=== PATIENT | female | born 1960 | race Caucasian/White ===

== ENCOUNTER 2016-08-10 11:17 | Day surgery (SDC) | payer OTHER ==
[~2016-08-10] VITALS: Ht 162.6 cm; Wt 84.4 kg
[2016-08-10] MEDS ORDERED: THERAGRAN (12:04)
[2016-08-10] MEDS ORDERED: ERYTHROMYCIN 0.5% (12:04)
[2016-08-10] MEDS ORDERED: METFORMIN (12:04)
[2016-08-10] MEDS ORDERED: LORATADINE (12:04)
[2016-08-10] MEDS ORDERED: GLIMEPIRIDE (12:04)
[2016-08-10 12:07] VITALS: Ht 162.6 cm; Wt 84.4 kg
[2016-08-10 12:55] VITALS: BP 126/63; PULSE 71; RESP 18
[2016-08-10] MEDS ORDERED: FENTAnyl 50 MCG/ML VIAL ONE (13:57)
[2016-08-10] MEDS ORDERED: MIDAZOLAM 1 MG/ML 2 ML INJ ONE ×3 (13:57)
[2016-08-10 14:25] VITALS: BP 128/72; PULSE 75; RESP 16
--- NOTE | 2016-08-10 15:00 | GILP ---
DATE OF PROCEDURE: NAME OF PROCEDURE: Colonoscopy. SURGEON: Isael Duron MD PREOPERATIVE DIAGNOSIS: Screening colonoscopy. POSTOPERATIVE DIAGNOSES: 1. Redundant colon and the cecum could not be reached. 2. Internal hemorrhoids. 3. In the examined area of the colon no colon neoplasm was identified. INDICATION FOR THE PROCEDURE: Ms. Kassandra Sanchez is a 56-year-old female patient who was scheduled fo r screening colonoscopy. The procedure and possible complications were well explained to the patient. She understood and con sented to the procedure. DESCRIPTION OF PROCEDURE: Under the influence of fentanyl and Versed the colonoscope was carefully introduced in the rectum and under direct vision it was advanced all the way to the whole length of the scope. FINDINGS: The patient had a very redundant colon and the cecum could not be reached. In the examine d area of the colon no colon neoplasm was identified. She was noted to have internal hemorrhoids. She tolerated the procedure very well and there was no complication from the procedure. At the end of the procedure she was awake with stable vital signs and she was discharged home to the care of he r family. IMPRESSION: 1. Colonoscopy the whole length of the scope. 2. Redundant colon and the cecum could not be reached. 3. Internal hemorrhoids. PLAN: Barium enema for evaluation of the proximal part of the colon. Dictated By: ISAEL RUSSO/BLANCHE Conf#: [id number] DID#: [id number]
== END 2016-08-10 15:26 | disposition home or self-care (01) ==
LOC: GIL 11:17
PROVIDERS: ATTEND Internal Medicine Gastroenterology
DX: Z12.11 Encounter for screening for malignant neoplasm of colon (principal); E11.9 Type 2 diabetes mellitus without complications; K64.8 Other hemorrhoids
CPT/HCPCS: 45378; 82962; J2250; J3010